=== PATIENT | male | born 1985 | race Caucasian/White ===

== ENCOUNTER 2018-12-01 01:57 | Emergency (ER) | payer SELFPAY ==
[~2018-12-01] VITALS: Ht 175.3 cm; Wt 67.3 kg
[2018-12-01] MEDS ORDERED: KETOROLAC 30 MG INJ IM STA (02:17)
[2018-12-01 02:25] VITALS: Ht 175.3 cm; Wt 67.3 kg
--- NOTE | 2018-12-01 02:30 | ERD ---
ER Documentation Chief Complaint Chief Complaint bib self, referred from clinic for cp, needs cardiac workup HPI 32-year-old man complaining of sharp nonexertional nonradiating intermittent chest pain since yesterday morning. He states the pain is intermittent and usually lasts for a few seconds and then resolves throughout the day, he was seen in a clinic that told him his EKG was unremarkable although he have to come to the emergency department to have his troponin checked. Patient denies other symptoms, no dizziness, no shortness of breath, no cough, no fevers or chills, no headache or blurry vision. ROS All systems reviewed and are negative except as per history of present illness. Medications Home Meds Active Scripts Ibuprofen* (Motrin*) 600 Mg Tab, 600 MG PO Q8 PRN for PAIN AND/OR INFLAMMATION, #30 TAB Prov:LOS CARIAS MD 12/01/18 Allergies Allergies: Coded Allergies: No Known Allergy (Unverified , 12/01/18) FmHx Family History: No diabetes Physical Exam Vitals Vital Signs Date Temp Pulse Resp B/P (MAP) Pulse Ox O2 O2 Flow FiO2 Time Delivery Rate 12/01/18 74 17 123/84 99 Room Air 02:30 (97) 12/01/18 98.0 71 17 122/84 99 02:25 (97) Physical Exam GENERAL: Well-developed, well-nourished, well-hydrated, in no apparent distress, looks nontoxic in appearance CARDIAC: Regular rate and rhythm, no murmurs rubs or gallops LUNGS: Clear bilaterally no wheezing crackles or stridor ABDOMEN: Soft nontender, no guarding, no rigidity, no rebound, no psoas sign no obturator sign. Normoactive bowel sounds SKIN: Warm and dry to touch, no abrasions, contusions, or hematomas, no lacerations, no ecchymosis, no target lesions, and without ulcers EXTREMITIES: No clubbing cyanosis or edema, calves are bilaterally symmetrical, no Homans sign, no popliteal cord sign. Distal pulses equal and bilateral PSYCH: Normal affect without agitation or irritability Results 24 hrs Laboratory Tests Test 12/01/18 02:36 Troponin I < 0.012 ng/ml Current Medications Medications Dose Sig/Jaquelin Start Time Status Last (Trade) Ordered Route PRN Stop Time Admin Dose Reason Admin Ketorolac 30 mg ONCE STAT 12/01/18 DC 12/01/18 Tromethamine IM 02:17 02:42 (Toradol) 12/01/18 02:18 Procedures/MDM EKG performed, read by me: 71 Bpm, normal sinus rhythm, normal axis, no acute ST segment changes, narrow QRS complex, with good R-wave progression in precordial leads. I also reviewed the EKG performed earlier at the medical clinic and it was unremarkable and essentially the same as our ED EKG. Troponin was negative One AP view of the chest performed, read by me reveals no acute infiltrates, normal mediastinum, sharp costophrenic and cardiac borders, no air under the diaphragm. Otherwise unremarkable chest x-ray. Differential diagnoses considered, included but not limited to acute coronary syndrome, pulmonary embolism, aortic dissection, abdominal aortic aneurysm, sepsis, stroke, meningitis, encephalitis, pneumonia, appendicitis, nabeel cystitis, bowel obstruction, pyelonephritis, nephrolithiasis, cystitis, as well as metabolic, hematologic, and electrolyte abnormalities. As well as abscess, cellulitis, fractures, and dislocations. Patient feels much better at this time, and vital signs are normal, symptoms have improved. I did give strict instructions to return to the ED if symptoms continue or worsen, patient will otherwise follow-up with primary care physician. Patient understood instructions and agreed to plan. Disclaimer: Inadvertent spelling and grammatical errors are likely due to EHR/dictation software use and do not reflect on the overall quality of patient care. Also, please note that the electronic time recorded on this note does not necessarily reflect the actual time of the patient encounter. Departure Diagnosis: Primary Impression: Chest pain Chest pain type: unspecified Qualified Codes: R07.9 - Chest pain, unspecified Condition: LOS Garvey MD Dec 01, 2018 02:27
[2018-12-01] MEDS ORDERED: IBUP-1542 PO (04:06)
[2018-12-01 04:28] VITALS: BP 121/81; PULSE 80; RESP 18
== END 2018-12-01 04:29 | disposition home or self-care (01) ==
LOC: E/R 01:57 → EDBD 01:57 → E/R 04:29
DX: R07.9 Chest pain, unspecified (principal); R40.2142 Coma scale, eyes open, spontaneous, at arrival to emergency department; R40.2362 Coma scale, best motor response, obeys commands, at arrival to emergency department; R40.2252 Coma scale, best verbal response, oriented, at arrival to emergency department
CPT/HCPCS: 36415; 71045; 84484; 93005; 96372; 99285; J1885